=== PATIENT | female | born 1940 | race Caucasian/White ===

== ENCOUNTER 2017-07-14 10:28 | Emergency (ER) | payer MEDICARE, BC ==
[~2017-07-14] VITALS: Ht 167.6 cm; Wt 57.0 kg
[~2017-07-14 10:28] MED LIST: ADVAI250I PO; ALPR0.25 PO; ALPR0.5T99 PO; ASPI81TA82 PO; AZIT250T43 PO; DUONI NEB; FURO20 PO; K-LO20PO PO; NEBUKIT XX; PRED20 PO; TIOT18I INH; Z.0.OXYGENDME NC; ZOCO40TA PO; [UNRECOGNIZED DRUG - CODE] TOP
[2017-07-14 10:30] VITALS: BP 142/67; PULSE 101; RESP 14; TEMP 98.5; O2SAT 94
[2017-07-14 10:42] VITALS: O2SAT 93
[2017-07-14] MEDS ORDERED: SPIRCAP INH (11:00)
[2017-07-14] MEDS ORDERED: IPRASOL INH (11:00)
[2017-07-14] MEDS ORDERED: methylPREDNISolone SOD SUCC 125 MG/2 ML VIAL IV PUSH ONE (11:00)
[2017-07-14] MEDS ORDERED: OXYGEN NAS.CANULA (11:00)
[2017-07-14] MEDS ORDERED: K LOR PO (11:00)
[2017-07-14] MEDS ORDERED: [UNRECOGNIZED DRUG - CODE] TOPICAL (11:00)
[2017-07-14] MEDS ORDERED: SIMV40TA PO (11:00)
[2017-07-14] MEDS ORDERED: ASPI81TA11 PO (11:00)
[2017-07-14] MEDS ORDERED: SODIUM CHLORIDE 0.9% FLUSH 10 ML FLUSH IVF PRN (11:00)
[2017-07-14] MEDS ORDERED: FURO20TA PO (11:00)
[2017-07-14] MEDS ORDERED: ADVA230A INH (11:00)
[2017-07-14] MEDS ORDERED: ALPR0.25 PO (11:00)
--- NOTE | 2017-07-14 11:22 | PD ---
HPI Chief Complaint: Respiratory Symptoms Time Seen by Provider: 10:46 Travel History International Travel<30 days: No Contact w/Intl Traveler<30days: No Traveled to known affect area: No History of Present Illness HPI This is a 76-year-old female who has a history of COPD who presents to the emergency department with increasing shortness of breath it's been worse over the past several days with no associated productive cough, fevers or chills. Her symptoms have been constant and moderate severity, worse with exertion and improved with rest. She denies any chest pain or leg swelling. She uses a nebulizer at home and used one prior to arrival here in the emergency department. 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) Cancer: No Cardiovascular Problems: Yes High Cholesterol: Yes COPD: Yes Diabetes: No Diminished Hearing: No Endocrine: No Gastrointestinal Disorders: Yes (CA COLON) GERD: Yes Genitourinary: No Hepatitis: No Hiatal Hernia: No Hypertension: No Immune Disorder: No Implanted Vascular Access Dvce: Yes Medical other: No Musculoskeletal: Yes Neurologic: No Psychiatric: Yes (ANXIETY) Reproductive: No Respiratory: Yes (COPD) Thyroid Disease: No ?: Not Past Surgical History Abdominal Surgery: Yes (CHRISTOPHER, APPY, SPLENECTOMY, POLYPS) Appendectomy: Yes Body Medical Devices: right knee hardware Cholecystectomy: Yes Eye Surgery: Yes (CATARACTS BILATERAL) Gynecologic Surgery: Yes (TUBAL LIG) Hysterectomy: Yes Joint Replacement: Yes (RIGHT TKR) Pacemaker: No Thoracic Surgery: Yes (R COLLAPSED LUNG) Other Surgery: Yes Social History Alcohol Use: No Tobacco Use: No Substance Use: No Allergies-Medications (Allergen,Severity, Reaction): Coded Allergies: acetaminophen (Unverified Allergy, Intermediate, headache, nausea, 05/10/17 ) hydrocodone (Unverified Allergy, Intermediate, headache, nausea, 05/10/17) codeine (Unverified Allergy, Mild, NAUSEA/VOMITING/HEADACHE, 05/10/17) Reported Meds & Prescriptions Reported Meds & Active Scripts Active Reported Spiriva Handihaler (Tiotropium Inh) 18 Mcg Cap 18 Mcg INH DAILY 1 capsule = 18 mcg Simvastatin 40 Mg Tab 40 Mg PO HS [K-Nena] 10 Meq PO DAILY [Oxygen] 2 Liter BEE.CANULA DAILY Furosemide 20 Mg Tab 20 Mg PO DAILY Advair Hfa 12 GM Inh (Fluticasone-Salmeterol 12 GM Inh) 230-21 Mcg/Act Aer 2 Puff INH BID Synalar Topical (Fluocinolone Topical) 0.025% Cream 1 Applic TOPICAL BID Aspirin EC (Aspirin) 81 Mg Tabdr 81 Mg PO DAILY Alprazolam 0.25 Mg Tab 0.25 Mg PO HS PRN Duoneb (Ipratropium-Albuterol Neb) 0.5-2.5 Mg/3 Ml Neb 1 Nebule INH Q6HR NEB Review of Systems Except as stated in HPI: all other systems reviewed are Neg Physical Exam Narrative GENERAL:Well appearing, no acute distress SKIN: Focused skin assessment warm and dry. HEAD: Atraumatic. Normocephalic. EYES: Pupils equal and round. No injection or drainage. ENT: Moist mucous membranes NECK: Trachea midline. CARDIOVASCULAR: Regular rate and rhythm. No murmur appreciated. RESPIRATORY: Diffuse wheezing, mild tachypnea GASTROINTESTINAL: Abdomen soft, non-tender, nondistended. MUSCULOSKELETAL: No obvious deformities. NEUROLOGICAL: Awake and alert. No obvious cranial nerve deficits. Moving all extremities. PSYCHIATRIC: Appropriate mood and affect; insight and judgment normal. Data Data Last Documented VS Vital Signs Date Time Temp Pulse Resp B/P (MAP) Pulse Ox O2 Delivery O2 Flow Rate FiO2 07/14/17 11:43 96 21 07/14/17 10:42 Room Air 07/14/17 10:42 07/14/17 10:30 98.5 101 14 Orders Orders Complete Blood Count With Diff (07/14/17 10:53) Comprehensive Metabolic Panel (07/14/17 10:53) Chest, Single Ap (07/14/17 10:53) Ecg Monitoring (07/14/17 10:53) Iv Access Insert/Monitor (07/14/17 10:53) Oximetry (07/14/17 10:53) Oxygen Administration (07/14/17 10:53) Methylprednisolone So Succ Inj (Solumedr (07/14/17 11:00) Albuterol-Ipratropium Neb (Duoneb Neb) (07/14/17 11:00) Sodium Chloride 0.9% Flush (Ns Flush) (07/14/17 11:00) Labs Laboratory Tests Test 07/14/17 11:16 White Blood Count 10.3 TH/MM3 Red Blood Count 3.89 MIL/MM3 Hemoglobin 11.5 GM/DL Hematocrit 34.5 % Mean Corpuscular Volume 88.7 FL Mean Corpuscular Hemoglobin 29.5 PG Mean Corpuscular Hemoglobin Concent 33.3 % Red Cell Distribution Width 15.4 % Platelet Count 308 TH/MM3 Mean Platelet Volume 8.1 FL Neutrophils (%) (Auto) 44.3 % Lymphocytes (%) (Auto) 40.9 % Monocytes (%) (Auto) 9.5 % Eosinophils (%) (Auto) 4.4 % Basophils (%) (Auto) 0.9 % Neutrophils # (Auto) 4.5 TH/MM3 Lymphocytes # (Auto) 4.2 TH/MM3 Monocytes # (Auto) 1.0 TH/MM3 Eosinophils # (Auto) 0.5 TH/MM3 Basophils # (Auto) 0.1 TH/MM3 CBC Comment DIFF FINAL Differential Comment Blood Urea Nitrogen 19 MG/DL Creatinine 0.85 MG/DL Random Glucose 83 MG/DL Total Protein 7.5 GM/DL Albumin 3.2 GM/DL Calcium Level 8.5 MG/DL Alkaline Phosphatase 101 U/L Aspartate Amino Transf (AST/SGOT) 24 U/L Alanine Aminotransferase (ALT/SGPT) 18 U/L Total Bilirubin 0.3 MG/DL Sodium Level 141 MEQ/L Potassium Level 4.4 MEQ/L Chloride Level 109 MEQ/L Carbon Dioxide Level 26.2 MEQ/L Anion Gap 6 MEQ/L Estimat Glomerular Filtration Rate 65 ML/MIN MDM Medical Decision Making Medical Screen Exam Complete: Yes Emergency Medical Condition: Yes Interpretation(s) afebrile, tachycardia hypertension electrolytes within normal limits Differential Diagnosis COPD exacerbation, bronchitis, pneumonia, pulmonary embolism Narrative Course This is a 76-year-old female who presents to the emergency department with increasing shortness of breath. She has a history of COPD. She is placed in a monitor and an IV was established. Labs are obtained which were reassuring. She was given serial bronchodilator treatments and prednisone and she feels much better. I think she can be discharged with prednisone. I don't suspect pulmonary embolism and she says this is just an exacerbation of her normal shortness of breath. Diagnosis Primary Impression: COPD exacerbation Patient Instructions: General Instructions Additional Instructions: If you develop severe shortness of breath, chest pain, or difficulty breathing return to the emergency department. Use albuterol every 4 hours for the next 2 days. Then use as needed for wheezing. Complete your course of steroids. Follow up with your primary care physician in 2-3 days if your symptoms have not improved. Med/Other Pt SpecificInfo: Prescription(s) given Scripts Prednisone (Prednisone) 20 Mg Tab 40 MG PO DAILY for 5 Days, #10 TAB 0 Refills Prov: Kate Timmons MD 07/14/17 Disposition: 01 DISCHARGE HOME Condition: Stable Kate Timmons MD Jul 14, 2017 11:21
[2017-07-14 11:28] LABS: AUTOMATED NEUTROPHIL # 4.5 TH/MM3 (1.8-7.7); BASOPHIL # 0.1 TH/MM3 (0-0.2); BASOPHIL % 0.9 % (0.0-2.0); EOSINOPHIL # 0.5 TH/MM3 (0-0.4); EOSINOPHIL % 4.4 % (0.0-4.0); HEMATOCRIT 34.5 % (35.0-46.0); HEMO FLAGS DIFF FINAL; LYMPH % 40.9 % (9.0-44.0); LYMPHOCYTE # 4.2 TH/MM3 (1.0-4.8); MEAN CELL VOLUME 88.7 FL (80.0-100.0); MEAN CORPUSCULAR HEMOGLOBIN 29.5 PG (27.0-34.0); MEAN CORPUSCULAR HGB CONC 33.3 % (32.0-36.0); MONO % 9.5 % (0.0-8.0); NEUT % 44.3 % (16.0-70.0); PLATELET COUNT 308 TH/MM3 (150-450); RED BLOOD COUNT 3.89 MIL/MM3 (4.00-5.30); RED CELL DISTRIBUTION WIDTH 15.4 % (11.6-17.2); WHITE BLOOD COUNT 10.3 TH/MM3 (4.0-11.0)
[2017-07-14] MEDS: RESP: ALBUTEROL 2.5 MG/IPRATROPIUM 0.5 MG NEB (SCH) INH ×2 (11:42→11:43)
[2017-07-14 11:43] VITALS: O2SAT 96
--- NOTE | 2017-07-14 11:44 | RADRPT ---
EXAM DATE/TIME: 07/14/2017 11:25 [facility] COMPARISON: CHEST SINGLE AP, August 29, 2015, 14:52. INDICATIONS : Short of breath. MEDICAL HISTORY : Chronic obstructive pulmonary disease. SURGICAL HISTORY : None. ENCOUNTER: Initial ACUITY: 2 days PAIN SCORE: 0/10 LOCATION: Bilateral chest FINDINGS: Lungs are hyperaerated with mild interstitial prominence and linear opacities in the left lung base s imilar to prior exam. Cardiomediastinal contours are stable. Bony thorax is intact. CONCLUSION: 1. Changes of obstructive pulmonary disease without acute abnormality or significant interval change. Zen Murdock MD on July 14, 2017 at 11:36 Board Certified Radiologist. This report was verified electronically.
[2017-07-14 11:48] LABS: ALT (GPT) 18 U/L (10-53)
[2017-07-14 11:49] LABS: ANION GAP 6 MEQ/L (5-15); AST (GOT) 24 U/L (15-37); BICARBONATE 26.2 MEQ/L (21.0-32.0); BLOOD UREA NITROGEN 19 MG/DL (7-18); CHLORIDE 109 MEQ/L (98-107); GLOMERULAR FILTRATION RATE 65 ML/MIN (>89); POTASSIUM 4.4 MEQ/L (3.5-5.1); SODIUM (NA) 141 MEQ/L (136-145)
[2017-07-14 11:51] LABS: ALKALINE PHOSPHATASE 101 U/L (45-117); TOTAL BILIRUBIN ADULT 0.3 MG/DL (0.2-1.0)
[2017-07-14] MEDS ORDERED: PRED20 PO (12:40)
[2017-07-18] MEDS ORDERED: POTA10TA2 PO (11:30)
== END 2017-07-14 13:09 | disposition home or self-care (01) ==
LOC: NEPD 10:28
DX: J44.1 Chronic obstructive pulmonary disease with (acute) exacerbation (principal)
CPT/HCPCS: 71010; 80053; 85025; 94640; 94664; 96374; 99284; J2930